=== PATIENT | female | born 1990 | race African-American/Black ===

== ENCOUNTER → 2021-09-08 | Outpatient (CLI) | payer OTHER ==
--- NOTE | 2021-09-08 12:40 | REP ---
INDICATION: I.24 CM LT OVARIAN MASS W/ VASCULAR FLOW. COMPARISON: None. TECHNIQUE: Pre and post contrast 3T MRI of the pelvis was performed utilizing various sequences. Gadolinium utilized: 13 cc ProHance FINDINGS: There is a smoothly marginated oval-shaped 4.2 x 3.1 x 3.1 cm sized structure of T1 and T2 prolongation the left adnexa. There are no septations or internal mural nodules. There is no enhancement. There is no pelvic sidewall adenopathy. There is no inguinal adenopathy. There is a tiny amount of free fluid in the cul-de-sac. The uterine parenchyma is somewhat heterogenous and the uterus appears somewhat enlarged with retroflexion and retroversion. There is a small amount of fluid in the endometrial cavity. There is no endometrial mucosal abnormality. The cervical junction line is within normal limits. There are a few incidental nabothian cysts. IMPRESSION: There is a simple cyst in the left adnexa as described above. This is of ovarian origin. There are no suspicious features seen in conjunction with this simple cyst. Follow-up to ensure resolution is, however, suggested. Other findings as described above. <Electronically signed by Edd Sotelo > 09/08/21 6210
== END ==
LOC: M PLARAD 08:55
PROVIDERS: ATTEND Obstetrics & Gynecology
DX: N83.202 Unspecified ovarian cyst, left side (principal)

== ENCOUNTER → 2022-08-14 | Outpatient (REF) | payer OTHER | LOC: M LAB REF 17:42 | PROVIDERS: ATTEND Internal Medicine Endocrinology, Diabetes & Metabolism | DX: E04.2 Nontoxic multinodular goiter (principal) ==

== ENCOUNTER 2022-09-19 06:01 | Day surgery (SDC) | payer OTHER ==
[~2022-09-19] VITALS: Ht 152.4 cm; Wt 75.3 kg
[~2022-09-19 06:01] MED LIST: ACET1TAB55; ACETAMINOPHEN *IV* 1,000 MG IV ONE; AMLO1TAB24; BUPR150T12; FLUO20CA22; IBUP1TAB7; NORG0.25; OXYC-517; SERT50TA29
[2022-09-19 06:47] LABS: HEMATOCRIT 33.1 % (36.0-47.0); HEMOGLOBIN 11.6 g/dl (12.0-15.5); MEAN CORPUSCULAR HEMOGLOBIN 28.2 pg (27.0-33.0); MEAN CORPUSCULAR VOLUME 80.3 fl (80.0-96.0); PLATELET COUNT, AUTOMATED 297 10^3/uL (150-450); RED BLOOD COUNT 4.12 10^6/uL (4.00-5.40); WHITE BLOOD COUNT 8.7 10^3/uL (4.0-10.0)
[2022-09-19] MEDS ORDERED: dexameTHASONE 4 MG/ML 1ML VIAL (J1100 PER 1MG) As Ordered ONE (07:11)
[2022-09-19] MEDS ORDERED: LIDOCAINE 2% 100MG/5ML SDV (FOR ANES.) As Ordered ONE (07:11)
[2022-09-19] MEDS ORDERED: ONDANSETRON 4MG 2ML VIAL As Ordered ONE (07:11)
[2022-09-19] MEDS ORDERED: propofoL 200 MG/20 ML VIAL As Ordered ONE (07:11)
[2022-09-19] MEDS ORDERED: SUGAMMADEX SODIUM 500 MG/5 ML VIAL (BRIDION) As Ordered ONE (07:11)
[2022-09-19] MEDS ORDERED: fentaNYL 100 MCG/2 ML INJECTION As Ordered ONE (07:11)
[2022-09-19] MEDS ORDERED: ROCURONIUM BROMIDE 50 MG/5 ML VIAL As Ordered ONE ×2 (07:11→08:54)
[2022-09-19] MEDS ORDERED: MIDAZOLAM INJ 2MG/2ML VIAL (J2250 PER 1MG) As Ordered ONE (07:12)
[2022-09-19] MEDS ORDERED: BUPIVACAINE HCL 0.25% 30ML VIAL As Ordered ONE (07:15)
[2022-09-19] MEDS ORDERED: KETOROLAC 60MG 2ML VIAL As Ordered ONE (07:18)
[2022-09-19] MEDS ORDERED: ACETAMINOPHEN 1000MG 100ML IV BAG As Ordered ONE (07:49)
[2022-09-19] MEDS ORDERED: LR 1,000 ML IV SCH ×2 (09:10→10:20)
[2022-09-19] MEDS ORDERED: ONDANSETRON 4MG 2ML VIAL IV PRN (09:10)
[2022-09-19] MEDS ORDERED: fentaNYL 100 MCG/2 ML INJECTION IV PRN (09:10)
[2022-09-19] MEDS ORDERED: oxyCODONE 5MG TAB PO PRN (09:10)
[2022-09-19] MEDS: MORPHINE 2 MG/ML 1ML VIAL IV PRN ×2 (09:29→09:37)
[2022-09-19 11:00] VITALS: BP 133/85
== END 2022-09-19 11:13 | disposition home or self-care (01) ==
LOC: M SDC 06:01
PROVIDERS: ATTEND Obstetrics & Gynecology
DX: D27.1 Benign neoplasm of left ovary (principal); F41.9 Anxiety disorder, unspecified; F32.A Depression, unspecified; Z79.899 Other long term (current) drug therapy
CPT/HCPCS: 36415; 58661; 81025; 85027; 86850; 86900; 86901; 88305; J0131; J1100; J1885; J2250; J2270; J2405; J3010

== ENCOUNTER → 2023-08-23 | Outpatient (REF) | payer OTHER ==
[~2023-08-23] MED LIST changes: -ACETAMINOPHEN *IV* 1,000 MG IV ONE
== END ==
LOC: M LAB REF 15:24
PROVIDERS: ATTEND Internal Medicine Endocrinology, Diabetes & Metabolism
DX: E04.2 Nontoxic multinodular goiter (principal)

== ENCOUNTER → 2024-02-27 | Outpatient (REF) | payer OTHER | LOC: M LAB REF 14:54 | PROVIDERS: ATTEND Internal Medicine Endocrinology, Diabetes & Metabolism | DX: E04.2 Nontoxic multinodular goiter (principal) ==